=== PATIENT | male | born 1965 | race Caucasian/White ===

== ENCOUNTER 2018-07-25 10:24 | Outpatient (CLI) | payer OTHER, SELFPAY ==
--- NOTE | 2018-07-25 10:00 | DI.RAD_ITS ---
SYMPTOM/DIAGNOSIS: INVERSION INJURY, SWELLING, PAIN, BRUISE, M25.571 RIGHT ANKLE AND RIGHT FOOT: Three views of the ankle and three views of the foot were obtained. The ankle mortise appears well maintained. No fracture is identified involving the foot or ankle.
== END 2018-07-25 10:44 ==
PROVIDERS: PCP Physician Assistant Medical; Visit Provider Physician Assistant Medical
DX: M25.571 Pain in right ankle and joints of right foot (principal); R22.41 Localized swelling, mass and lump, right lower limb; S93.401A Sprain of unspecified ligament of right ankle, initial encounter; Y99.9 Unspecified external cause status
CPT/HCPCS: 73610; 73630

== ENCOUNTER 2019-09-01 09:19 | Outpatient (CLI) | payer OTHER, SELFPAY ==
[2019-09-04 08:26] LABS: Testosterone, Total 367 ng/dL (240-950)
== END 2019-09-01 09:39 ==
PROVIDERS: PCP Physician Assistant Medical; Visit Provider Physician Assistant Medical
DX: E29.1 Testicular hypofunction (principal)
CPT/HCPCS: 36415; 84403

== ENCOUNTER 2021-12-25 01:11 | Outpatient (CLI) | payer OTHER, SELFPAY ==
[2021-12-25 10:42] LABS: HCT 53.5 % (40.0-50.0); HGB 18.2 g/dL (13.5-17.5); MCH 31.1 pg (27.0-33.0); MCV 91.5 fL (80-95); MPV 10.8 fL (8.0-11.0); Platelet Count 219 10^3/uL (130-400); RBC 5.85 10^6/uL (4.36-5.78); RDW 13.1 % (11.8-14.1); RDW-SD 44.4 fL; WBC 7.35 10^3/uL (4.4-10.8)
[2021-12-25 12:31] LABS: ALT 54 U/L (16-63); AST 31 U/L (15-37); Albumin 3.9 g/dL (3.4-5.0); Alkaline Phosphatase 72 U/L (46-116); Anion Gap 6.2 mmol/L (3-11); BUN 13 mg/dL (7-18); Bilirubin, Total 0.9 mg/dL (0.2-1.0); CO2 28.8 mmol/L (21.0-32.0); CREATININE 1.1 mg/dL (0.70-1.30); Calcium 9.6 mg/dL (8.5-10.1); Chloride 104 mmol/L (98-107); Glucose 91 mg/dL (74-106); Potassium 4.7 mmol/L (3.5-5.1); Sodium 139 mmol/L (136-145); Total Protein 7.1 g/dL (6.4-8.2)
[2021-12-27 06:38] LABS: Vitamin D 25 Total 100.9 ng/mL (30-100)
[2021-12-31 16:32] LABS: Testosterone, Free 11.3 ng/dL (3.87-14.7); Testosterone, Total 418 ng/dL (240-950)
== END 2021-12-25 01:12 | disposition home or self-care (01) ==
LOC: LBO 01:11
PROVIDERS: Family Medicine; PCP Physician Assistant Medical; Visit Provider Physician Assistant Medical
DX: N40.0 Benign prostatic hyperplasia without lower urinary tract symptoms (principal); E29.1 Testicular hypofunction; I10 Essential (primary) hypertension; E55.9 Vitamin D deficiency, unspecified
CPT/HCPCS: 36415; 80053; 82306; 84402; 84403; 85027; 84154

== ENCOUNTER 2022-03-08 02:34 | Outpatient (CLI) | payer OTHER, SELFPAY ==
[2022-03-08 07:30] LABS: Abs Immature Grans 0.02 10^3/uL (0.0-0.06); Absolute Basophil Count 0.06 10^3/uL (0.0-0.2); Absolute Eosinophil Count 0.24 10^3/uL (0.0-0.7); Absolute Lymphocyte Count 2.34 10^3/uL (1.2-3.4); Absolute Monocyte Count 0.53 10^3/uL (0.1-0.8); Absolute Neutrophil Count 4.74 10^3/uL (1.2-6.7); Basophils % 0.8; HCT 55.1 % (40.0-50.0); HGB 18.6 g/dL (13.5-17.5); Immature Grans % 0.3; Lymphocytes % 29.5; MCH 30.5 pg (27.0-33.0); MCHC 33.8 % (32.0-36.0); MCV 90 fL (80-95); MPV 11.3 fL (8.0-11.0); Monocytes % 6.7; Neutrophils % 59.7; RDW 12.2 % (11.8-14.1); RDW-SD 40.3 fL; WBC 7.93 10^3/uL (4.4-10.8)
[2022-03-08 08:06] LABS: Diff Comment Diff Reviewed; Platelet Count 200 10^3/uL (130-400); RBC Morphology Normal
[2022-03-08 08:44] LABS: ALT 54 U/L (16-63); AST 28 U/L (15-37); Albumin 3.9 g/dL (3.4-5.0); Alkaline Phosphatase 78 U/L (46-116); Anion Gap 5.7 mmol/L (3-11); BUN 10 mg/dL (7-18); Bilirubin, Total 0.8 mg/dL (0.2-1.0); CO2 29.3 mmol/L (21.0-32.0); CREATININE 1.2 mg/dL (0.70-1.30); Calcium 8.8 mg/dL (8.5-10.1); Chloride 106 mmol/L (98-107); Glucose 104 mg/dL (74-106); Potassium 4.4 mmol/L (3.5-5.1); Sodium 141 mmol/L (136-145)
[2022-03-11 16:53] LABS: Testosterone, Free 24.5 ng/dL (3.87-14.7); Testosterone, Total 789 ng/dL (240-950)
== END 2022-03-08 02:35 | disposition home or self-care (01) ==
LOC: LBO 02:34
PROVIDERS: PCP Physician Assistant Medical; Visit Provider Family Medicine
DX: I10 Essential (primary) hypertension (principal); N40.1 Benign prostatic hyperplasia with lower urinary tract symptoms; E55.9 Vitamin D deficiency, unspecified; E29.1 Testicular hypofunction
CPT/HCPCS: 36415; 80053; 82306; 84402; 84403; 84154; 85025